=== PATIENT | female | born 1980 | race Caucasian/White ===

== ENCOUNTER 2018-07-23 12:30 | Day surgery (SDC) | payer OTHER ==
[~2018-07-23] VITALS: Ht 160 cm; Wt 112.0 kg
[2018-07-23 13:41] VITALS: Ht 160 cm; Wt 112.0 kg
[2018-07-23] MEDS ORDERED: LESSINA (13:47)
[2018-07-23] MEDS ORDERED: ENALAPRIL (13:47)
[2018-07-23] MEDS ORDERED: ACTOS (13:47)
[2018-07-23] MEDS ORDERED: MVI (13:47)
[2018-07-23] MEDS ORDERED: METFORMIN (13:47)
[2018-07-23] MEDS ORDERED: HCTZ (13:47)
[2018-07-23] MEDS ORDERED: ATORVASTATIN (13:47)
[2018-07-23] MEDS ORDERED: JANUVIA (13:47)
[2018-07-23] MEDS ORDERED: BASAGLAR (13:47)
[2018-07-23 15:22] VITALS: BP 116/72; PULSE 78; RESP 20
--- NOTE | 2018-07-23 15:27 | PREAC ---
Date/Time of Note Date/Time of Note DATE: 07/23/18 TIME: 15:26 Anesthesia Eval and Record Evaluation Time Pre-Procedure Interview DATE: 07/23/18 TIME: 15:26 Age 38 Sex female NPO: 8 hrs Preoperative diagnosis Dyspepsia Planned procedure EGD Past Medical History Past Medical History: Includes Cardio: Dyslipidemia Endo: Diabetes GI: Obesity Surgery & Anesthesia Issues No known issue Meds Anticoagulation: No Beta Drew within 24 hr: No Reason Beta Drew not given: Pt. not on B-Drew Reported Medications [Basaglar] No Conflict Check 07/23/18 [Mvi] No Conflict Check 07/23/18 [Lessina] No Conflict Check 07/23/18 [Actos] No Conflict Check 07/23/18 [Atorvastatin] No Conflict Check 07/23/18 [Enalapril] No Conflict Check 07/23/18 [Hctz] No Conflict Check 07/23/18 [Januvia] No Conflict Check 07/23/18 [Metformin] No Conflict Check 07/23/18 Meds reviewed: No Allergies Coded Allergies: Sulfa (Sulfonamide Antibiotics) (Verified Allergy, Severe, RASH, 07/23/18) amoxicillin (Verified Allergy, Severe, RASH, 07/23/18) clavulanic acid (Verified Allergy, Severe, RASH, 07/23/18) Allergies Reviewed: No Labs/Studies Labs Reviewed: Reviewed by anesthesiologist test: Negative Studies: ECG (n/a), CXR (n/a) Pre-procedure Exam Airway: Adequate mouth opening, Adequate thyromental dist Mallampati: Mallampati II Teeth: Normal Lung: Normal Heart: Normal ASA Physical Status ASA physical status: 3 Emergency: None Planned Anesthetic General/MAC: MAC Planned Pain Management Parenteral pain med Pre-operative Attestations Prior to commencing anesthesia and surgery, the patient was re-evaluated, there was verification of: *The patient's identity *The results of appropriate recent lab work and preoperative vital signs *The above evaluation not changing prior to induction *Anesthetic plan, risk benefits, alternative and complications discussed with patient/family; questions answered; patient/family understands, accepts and wishes to proceed. ISABEL VERONICA MD July 23, 2018 15:27
[2018-07-23] MEDS ORDERED: PROPOFOL 40 ML ONE (15:52)
--- NOTE | 2018-07-23 15:54 | PAC ---
Date/Time of Note Date/Time of Note DATE: 07/23/18 TIME: 15:53 Post-Anesthesia Notes Post-Anesthesia Note Last documented vital signs T: 98.0 Activity: WNL Respiratory function: WNL Cardiovascular function: WNL Mental status: Baseline Pain reasonably controlled: Yes Hydration appropriate: Yes Nausea/Vomiting absent: Yes ISABEL VERONICA MD July 23, 2018 15:53
[2018-07-23 15:55] VITALS: BP 132/77; PULSE 114; RESP 20
[2018-07-23 16:00] VITALS: BP 118/58; PULSE 111; RESP 20
[2018-07-23 16:20] VITALS: BP 117/75; PULSE 81; RESP 18
== END 2018-07-23 17:51 | disposition home or self-care (01) ==
LOC: GIL 12:30
PROVIDERS: ATTEND Internal Medicine Gastroenterology
DX: K20.8 Other esophagitis (principal); K29.70 Gastritis, unspecified, without bleeding; E11.9 Type 2 diabetes mellitus without complications; Z79.84 Long term (current) use of oral hypoglycemic drugs
CPT/HCPCS: 43239; 82962; 84703; 88305; Z7610